=== PATIENT | male | born 1975 | race Caucasian/White ===

== ENCOUNTER 2017-06-23 21:45 | Emergency (ER) | payer BC, OTHER ==
[~2017-06-23] VITALS: Ht 182.9 cm; Wt 86.2 kg
[2017-06-23 22:01] VITALS: BP 135/91
[2017-06-23 22:28] LABS: HEMOGLOBIN 12.8 G/DL (12.5-16.6); MCH 31.1 PG (29.0-34.0); MCHC 34.6 G/DL (30.0-36.0); MCV 89.8 FL (86-99); PLATELET COUNT 180 K/uL (156-360); RBC DIS.WIDTH-CV 12.6 % (11.8-14.6); RBC DIS.WIDTH-SD 41.4 % (39-53); RED BLOOD COUNT 4.12 M/uL (4.00-5.50); WHITE BLOOD COUNT 7.7 K/uL (4.1-10.2)
[2017-06-23 22:38] LABS: ALBUMIN 4.4 g/dL (3.2-4.8); CHLORIDE 104 mEq/L (99-109); SODIUM 138 mEq/L (136-147)
[2017-06-23 22:40] LABS: GLUCOSE 97 mg/dL (70-99); TOTAL PROTEIN 7.1 g/dL (6.4-8.3)
[2017-06-23 22:42] LABS: TOTAL BILIRUBIN 1.3 mg/dL (0.0-1.0)
[2017-06-23 22:44] LABS: ALKALINE PHOSPHATASE 54 IU/L (3-129); GFR ESTIMATE (CALCULATED) > 59 mL/min/ (58.99-99999)
[2017-06-23 22:45] LABS: AST (GOT) 28 IU/L (2-34); UREA NITROGEN (BUN) 14 mg/dL (9-23)
[2017-06-23 22:47] LABS: ALT (GPT) 35 IU/L (3-49); LIPASE 34 U/L (1.0-51.0)
[2017-06-23 23:22] LABS: APPEARANCE CLEAR ((CLEAR)); BILIRUBIN NEGATIVE; BLOOD NEGATIVE; COLOR COLORLESS ((YELLOW)); GLUCOSE (STRIP) NEGATIVE; KETONES NEGATIVE; LEUKOCYTES NEGATIVE; NITRITE NEGATIVE; PROTEIN (STRIP) NEGATIVE; SPECIFIC GRAVITY 1.005 (1.000-1.030); UCUL ADDED? NO; UROBILINOGEN 0.2 MG/DL (0.2-1.0)
[2017-06-23] MEDS ORDERED: PERCOCET 5/31 TABLET PO (23:29)
== END 2017-06-23 23:54 | disposition home or self-care (01) ==
LOC: EME 21:45
DX: R10.11 Right upper quadrant pain (principal); K82.4 Cholesterolosis of gallbladder; G89.29 Other chronic pain; Z88.0 Allergy status to penicillin
CPT/HCPCS: 76705; 80053; 81003; 83690; 85027; 99281; 99284